=== PATIENT | male | born 1960 | race Caucasian/White ===

== ENCOUNTER 2018-07-31 14:04 | Emergency (ER) | payer MEDICAID ==
[~2018-07-31] VITALS: Ht 188 cm; Wt 104.3 kg
[2018-07-31 14:15] VITALS: BP 149/80
[2018-07-31] MEDS ORDERED: HYDROcodone-ACET 10/325MG TAB PO ONE (17:15)
== END 2018-07-31 17:37 | disposition home or self-care (01) ==
LOC: ER 14:08
DX: S52.572A Other intraarticular fracture of lower end of left radius, initial encounter for closed fracture (principal); S52.612A Displaced fracture of left ulna styloid process, initial encounter for closed fracture; M25.511 Pain in right shoulder; M25.521 Pain in right elbow; I10 Essential (primary) hypertension; F12.10 Cannabis abuse, uncomplicated; R55 Syncope and collapse; V89.2XXA Person injured in unspecified motor-vehicle accident, traffic, initial encounter; Y93.55 Activity, bike riding; Y92.488 Other paved roadways as the place of occurrence of the external cause; Y99.8 Other external cause status
CPT/HCPCS: 29125; 70450; 73030; 73080; 73110; 93005